=== PATIENT | female | born 1980 | race Caucasian/White ===

== ENCOUNTER 2021-11-28 14:15 | Outpatient (REF) | payer BC, SELFPAY ==
--- NOTE | ~2021-11-28 | XR_ITS ---
EXAMINATION: XR LUMBOSACRAL SPINE WITH OBLIQUES CLINICAL INFORMATION: Pain. Intervertebral disc degeneration lumbosacral region. COMPARISON: None TECHNIQUE: Total of 5 views. AP, both oblique, and lateral views of the lumbar spine. Lateral view of the lumbosacral junction. FINDINGS: There are five segmented, nonrib-bearing vertebra of the lumbar spine. The vertebral bodies have normal height and alignment. The curvature of the lumbar spine is normal. There is minimal disc space narrowing at the L5-S1 level. Otherwise, the disc spaces are maintained. No pars interarticularis defect or vertebral compression fracture. The anterior and posterior elements are intact. No lytic or osteoblastic lesion. Sacrum and sacroiliac joints are normal. XR/XR lumbar spine 4V min IMPRESSION: * No significant radiographic findings in the lumbar spine. No evidence of degenerative disc disease, fracture or subluxation. * Sacroiliac joints are normal.
--- NOTE | ~2021-11-28 | XR_ITS ---
EXAMINATION: XR BILATERAL HIPS WITH AP PELVIS CLINICAL INFORMATION: Pain. Evaluate sacroiliitis. COMPARISON: None TECHNIQUE: Pelvis, AP view Right hip, 2 views and left hip, 2 views FINDINGS: The osseous pelvic ring is intact. Alignment is normal at the sacroiliac joints, hips and pubic symphysis. Sacral ala, foramina and sacroiliac joints are normal. No erosions. The joint space of each hip is maintained. A 0.6 cm focus of calcification that projects superior to the right greater trochanter might represent calcium hydroxyapatite deposition in region of gluteus medius attachment to the trochanter. XR/XR hip BI w PEL1V IMPRESSION: * Pelvic bones are normal. No evidence of sacroiliitis. * No arthritic disease at either hip. * A solitary focus of calcification projects superior to the right femoral greater trochanter. This might represent calcium hydroxyapatite deposition in the gluteus medius tendon.
== END 2021-11-28 14:16 | disposition home or self-care (01) ==
LOC: HO.XRAY 14:15
PROVIDERS: PCP Physician Assistant Medical; Visit Provider Physical Medicine & Rehabilitation
DX: M51.37 Other intervertebral disc degeneration, lumbosacral region (principal); M46.1 Sacroiliitis, not elsewhere classified
CPT/HCPCS: 72110; 73521